=== PATIENT | male | born 1940 | race Caucasian/White ===

== ENCOUNTER 2017-12-13 11:38 | Day surgery (SDC) | payer MEDICARE, OTHER ==
[~2017-12-13] VITALS: Ht 162.6 cm; Wt 73.0 kg
[~2017-12-13 11:38] MED LIST: ACET500 PO; ASPI325 PO; ASPI81CH PO; Bystolic20 MG PO; DAILY MULTIPLE1 EACH PO; ELIQUIS5 MG PO; FISH1000 PO; Fish Oil 10001000 MG; IBUP400 PO; MELA3 PO; METO50; MULVITMINF PO; NIAC250ER PO; OMEPRAZOLE MAGN20 MG PO; STOMUL PO; TAMS.4ER PO; Therapeutic M1 EAC5 PO; Zofran Odt4 MG SL
[2018-01-31] MEDS ORDERED: FISH OIL 1,0001 EAC2 PO (11:37)
[2018-01-31] MEDS ORDERED: Multiple Vitam1 EAC1 PO (11:38)
[2018-01-31] MEDS ORDERED: Prilosec Otc20 MG (11:38)
[2018-01-31] MEDS ORDERED: METO100ER PO (11:38)
[2018-01-31] MEDS ORDERED: TAMS.4ER PO (11:39)
[2018-01-31] MEDS ORDERED: DILTIAZEM 24HR180 MG PO (11:39)
[2018-01-31] MEDS ORDERED: ELIQUIS5 MG PO (11:39)
== END 2017-12-13 13:25 | disposition home or self-care (01) ==
LOC: ORSCSDS 11:38
DX: K62.5 Hemorrhage of anus and rectum (principal); Z53.9 Procedure and treatment not carried out, unspecified reason

== ENCOUNTER 2018-02-08 10:36 | Day surgery (SDC) | payer MEDICARE, OTHER ==
[~2018-02-08] VITALS: Ht 162.6 cm; Wt 75.3 kg
[~2018-02-08 10:36] MED LIST changes: +DILTIAZEM 24HR180 MG PO; +FISH OIL 1,0001 EAC2 PO; +METO100ER PO; +Multiple Vitam1 EAC1 PO; +Prilosec Otc20 MG
== END 2018-02-08 12:56 | disposition home or self-care (01) ==
LOC: ORSCSDS 10:36
PROVIDERS: Surgery
PROC: 0DBK8ZX Excision of Ascending Colon, Via Natural or Artificial Opening Endoscopic, Diagnostic (ICD-10-PCS; principal; 2018-02-08 11:45)
DX: Z12.11 Encounter for screening for malignant neoplasm of colon (principal); D12.2 Benign neoplasm of ascending colon; K57.30 Diverticulosis of large intestine without perforation or abscess without bleeding; K64.8 Other hemorrhoids; Z80.0 Family history of malignant neoplasm of digestive organs; I10 Essential (primary) hypertension; K21.9 Gastro-esophageal reflux disease without esophagitis; F41.8 Other specified anxiety disorders; E78.5 Hyperlipidemia, unspecified; I48.91 Unspecified atrial fibrillation; I34.1 Nonrheumatic mitral (valve) prolapse; Z87.891 Personal history of nicotine dependence; Z79.899 Other long term (current) drug therapy
CPT/HCPCS: 88305; J7120

== ENCOUNTER → 2022-05-26 | Outpatient (CLI) | payer MEDICARE, OTHER ==
[2022-05-26 19:23] LABS: BASOPHILS ABSOLUTE AUTO 0.03 K/mm3 (0.00-0.23); BASOPHILS PERCENT AUTO 0 % (0-2); EOSINOPHILS PERCENT AUTO 1 % (0-6); Hematocrit 40.9 % (37.0-53.0); Hemoglobin 13.2 g/dL (13.5-17.5); IMMATURE GRAN ABSOLUTE AUTO 0.03 K/mm3 (0.00-0.10); IMMATURE GRAN PERCENT AUTO 0 % (0-1); LYMPHOCYTES ABSOLUTE AUTO 2.38 K/mm3 (0.84-5.20); LYMPHOCYTES PERCENT AUTO 31 % (21-46); MONOCYTES ABSOLUTE AUTO 0.75 K/mm3 (0.16-1.47); MONOCYTES PERCENT AUTO 10 % (4-13); Mean Corpuscular HGB 29.8 pg (26.0-34.0); Mean Corpuscular HGB Conc 32.3 g/dL (31.5-36.5); Mean Corpuscular Volume 92 fL (80-100); NEUTROPHILS ABSOLUTE AUTO 4.49 K/mm3 (1.96-9.15); NEUTROPHILS PERCENT AUTO 58 % (41-73); Platelet Count 193 K/mm3 (150-400); RDW Coefficient Variation 13.2 % (11.7-14.2); RDW Standard Deviation 45.2 fL (35.1-46.3); Red Blood Cell Count 4.43 M/mm3 (4.30-5.90); White Blood Cell Count 7.78 K/mm3 (4.00-11.30)
[2022-05-26 19:35] LABS: Alanine Aminotransfer (ALT/SGP 36 U/L (12-78); Albumin, Blood 3.8 g/dL (3.4-5.0); Albumin/Globulin Ratio 1.1 (0.8-1.8); Alk Phos 47 U/L (50-136); Anion Gap 8 mmol/L (6-16); Aspartate Aminotrans (AST/SGOT 31 U/L (12-37); Bilirubin, Total 1.2 mg/dL (0.1-1.0); Blood Urea Nitrogen 15 mg/dL (8-24); CHOL/HDL RATIO 6.1; CO2, Blood 26 mmol/L (21-32); Chloride, Blood 106 mmol/L (98-108); Cholesterol 215 mg/dL (50-200); Globulin, Blood 3.4 g/dL (2.2-4.0); Glucose, Blood 90 mg/dL (70-99); HDL Cholesterol 35 mg/dL (>39); LDL/HDL RATIO 4.2; Low Density Lipoprotein Chol 148 mg/dL (0-110); Potassium, Blood 4.1 mmol/L (3.5-5.5); Sodium, Blood 140 mmol/L (136-145); Total Protein, Blood 7.2 g/dL (6.4-8.2); Triglycerides 158 mg/dL (30-160); Very Low Density Lipoprot Chol 31 mg/dL (6-32)
[2022-05-26 20:08] LABS: Bun/Creatinine Ratio 16.1 (12.0-20.0); Creatinine, Blood 0.93 mg/dL (0.60-1.20); Glomerular Filtration Rate 83 (60-)
== END | disposition home or self-care (01) ==
LOC: LAB SHORT 17:45
PROVIDERS: Internal Medicine
DX: I10 Essential (primary) hypertension (principal); I48.92 Unspecified atrial flutter; E78.5 Hyperlipidemia, unspecified; E53.8 Deficiency of other specified B group vitamins
CPT/HCPCS: 80053; 80061; 82607; 82746; 85025